=== PATIENT | female | born 1965 | race Caucasian/White ===

== ENCOUNTER → 2016-08-31 | Outpatient (CLI) | payer BC ==
[~2016-08-31] MED LIST: LORA-741 PO; PARO1TAB27 PO
== END | disposition home or self-care (01) ==
LOC: C.PAPS 11:05
PROVIDERS: ATTEND Physician Assistant
DX: Z01.419 Encounter for gynecological examination (general) (routine) without abnormal findings (principal)

== ENCOUNTER → 2017-03-26 | Outpatient (CLI) | payer BC ==
--- NOTE | 2017-03-26 15:30 | MAMMOGRAPHY REPORT ---
BILATERAL DIGITAL SCREENING MAMMOGRAM TOMOSYNTHESIS WITH CAD: 03/26/2017 CLINICAL HISTORY: Routine screening. Patient reported right axillary/breast tenderness for a few mon ths to the computed tomography technologist prior to this mammogram. TECHNIQUE: Bilateral breast tomosynthesis in addition to standard 2D mammography was performed. Curre nt study was also evaluated with a Computer Aided Detection (CAD) system. COMPARISON: Comparison is made to exams dated: 03/21/2016 mammogram, 03/11/2015 mammogram, 4 mammogram, 03/09/2013 mammogram, 03/07/2012 mammogram, and 10/19/2010 mammogram - [facility]. BREAST COMPOSITION: The tissue of both breasts is heterogeneously dense, which may obscure small mas ses. FINDINGS: There are decreasing circumscribed masses in the right breast, most likely representing flu ctuating cysts. No suspicious mass, architectural distortion or cluster of microcalcifications is se en. No suspicious or new lymphadenopathy projecting over the pectoralis muscles on the MLO views. IMPRESSION: ACR BI-RADS CATEGORY 2: BENIGN 1. There is no mammographic evidence of malignancy. A 1 year screening mammogram is recommended. 2. The patient reported a few month history of right axillary and breast tenderness during this scre ening exam. Clinical correlation is needed and if clinically indicated, right axillary and breast ul trasound may be useful. The patient will receive written notification of the results. Approximately 10% of breast cancers are not detected with mammography. A negative mammographic report should not delay biopsy if a clinically suggestive mass is present. Jo Ann Martino M.D. ay/:03/26/2017 13:18:08 [employer] Rental Clerk: Josefina WALSH(R)(M), [facility] letter sent: Normal 1/2 BI-RADS Code: ACR BI-RADS Category 2: Benign
== END | disposition home or self-care (01) ==
LOC: C.MAMM 10:06
PROVIDERS: ATTEND Obstetrics & Gynecology
DX: Z12.31 Encounter for screening mammogram for malignant neoplasm of breast (principal)

== ENCOUNTER → 2017-10-17 | Outpatient (CLI) | payer BC | END | disposition home or self-care (01) | LOC: C.PAPS 11:21 | PROVIDERS: ATTEND Obstetrics & Gynecology | DX: Z01.419 Encounter for gynecological examination (general) (routine) without abnormal findings (principal) ==

== ENCOUNTER → 2017-11-22 | Outpatient (CLI) | payer BC ==
--- NOTE | 2017-11-22 09:24 | DIAGNOSTIC IMAGING REPORT ---
R KNEE 4 OR MORE, R COMPARISON VIEWS CLINICAL HISTORY: 52 years-old Female presenting with RIGHT KNEE PAIN. TECHNIQUE: Frontal view of the bilateral knees in standing position as well as sunrise, tunnel, and lateral views of the right knee were obtained. COMPARISON: None. FINDINGS: Bilateral knee joints congruent and symmetric. No joint space loss. Left knee is grossly normal. The right knee joint specifically demonstrates no patellar subluxation. No knee joint effusion on the right. No acute fracture or malalignment. No advanced degenerative change. No radiographic soft tissue abnormality. IMPRESSION: Normal radiographs of the right knee. Grossly normal left knee. Electronically signed by: Darwin Branham M.D. 11/22/2017 9:23 AM Dictated Date/Time: 11/22/2017 9:22 AM
== END | disposition home or self-care (01) ==
LOC: C.RDSM 09:06
PROVIDERS: ATTEND Physician Assistant
DX: M25.561 Pain in right knee (principal)